=== PATIENT | male | born 1990 | race Hispanic/Latino ===

== ENCOUNTER 2023-01-23 15:19 | Emergency (ER) | payer OTHER ==
[~2023-01-23] VITALS: Ht 162.6 cm; Wt 89.8 kg
[2023-01-23] MEDS ORDERED: 0.9%NACL 1000ML 2,000 ML IV ONE (15:30)
[2023-01-23 16:18] LABS: BASOPHILS % (AUTO) 0.3 % (0.0-5.0); HEMATOCRIT 39.3 % (42-54); LYMPHOCYTES % (AUTO) 6.8 % (21.0-51.0); MEAN CORPUSCULAR HEMOGLOBIN 28.5 pg (27.0-33.0); MEAN CORPUSCULAR HGB CONC 33.3 g/dL (32.0-36.0); MEAN CORPUSCULAR VOLUME 85.4 fL (79-99); MONOCYTES % (AUTO) 5.5 % (3.0-13.0); NEUTROPHILS % (AUTO) 85.9 % (40.0-77.0); PLATELET COUNT (AUTO) 222 K/uL (130-400); RED CELL DISTRIBUTION WIDTH 13.2 % (11.0-15.5); WHITE BLOOD COUNT (AUTO) 17.6 K/uL (4.8-10.8)
[2023-01-23 16:25] LABS: POTASSIUM 3.7 mmol/L (3.5-5.1)
[2023-01-23 16:53] LABS: CREATININE 0.8 mg/dL (0.5-1.5)
[2023-01-23 17:00] LABS: ALBUMIN 3.3 g/dL (3.5-5.0); TOTAL PROTEIN, SERUM 6.1 g/dL (6.0-8.3)
[2023-01-23] MEDS ORDERED: ONDA4TAB10 PO (17:16)
[2023-01-23 18:24] VITALS: BP 145/78
== END 2023-01-23 18:27 | disposition home or self-care (01) ==
LOC: EDH 15:19
DX: R53.83 Other fatigue (principal); E86.9 Volume depletion, unspecified; Z98.890 Other specified postprocedural states
CPT/HCPCS: 99283; 96360; 82550; 80053; 85025; 36415; J7030